=== PATIENT | female | born 1955 | race Caucasian/White ===

== ENCOUNTER 2019-01-05 04:07 | Emergency (ER) | payer MEDICARE ==
[~2019-01-05] VITALS: Ht 157.5 cm; Wt 148.3 kg
[2019-01-05] MEDS ORDERED: ZANAFLEX2 M1 PO (04:18)
[2019-01-05] MEDS ORDERED: SYNTHROID100 MC1 PO (04:18)
[2019-01-05] MEDS ORDERED: MICARDIS 80 MG80 MG PO (04:19)
[2019-01-05] MEDS ORDERED: BENADRYL25 MG PO (04:20)
[2019-01-05] MEDS ORDERED: COLACE100 MG PO (04:20)
[2019-01-05] MEDS ORDERED: LOVASTATIN 20 M20 MG PO (04:20)
[2019-01-05] MEDS ORDERED: VITAMIN D1000 UNI1 PO (04:22)
[2019-01-05] MEDS ORDERED: NORVASC10 MG PO (04:24)
[2019-01-05] MEDS ORDERED: PERCOCET 5-3251 EACH PO (04:29)
[2019-01-05 04:37] VITALS: BP 150/42
== END 2019-01-05 04:38 | disposition home or self-care (01) ==
LOC: M.ERS 04:07
DX: R51 Headache (principal); G89.29 Other chronic pain; M54.9 Dorsalgia, unspecified; I10 Essential (primary) hypertension; E05.90 Thyrotoxicosis, unspecified without thyrotoxic crisis or storm; E78.5 Hyperlipidemia, unspecified; J45.909 Unspecified asthma, uncomplicated; F17.200 Nicotine dependence, unspecified, uncomplicated; Z88.2 Allergy status to sulfonamides; Z98.890 Other specified postprocedural states

== ENCOUNTER 2019-02-23 05:45 | Emergency (ER) | payer MEDICARE, MEDICAID ==
[~2019-02-23] VITALS: Ht 157.5 cm; Wt 139.8 kg
[~2019-02-23 05:45] MED LIST: BENADRYL25 MG PO; COLACE100 MG PO; LOVASTATIN 20 M20 MG PO; MICARDIS 80 MG80 MG PO; NORVASC10 MG PO; PERCOCET 5-3251 EACH PO; SYNTHROID100 MC1 PO; VITAMIN D1000 UNI1 PO; ZANAFLEX2 M1 PO
[2019-02-23] MEDS ORDERED: MAPAP500 M1 PO (05:59)
[2019-02-23] MEDS ORDERED: IBU800 MG PO (05:59)
[2019-02-23] MEDS ORDERED: TORADOL 10 MG T10 MG PO (08:17)
[2019-02-23] MEDS ORDERED: CYCLOBENZAPRINE5 MG PO (08:17)
[2019-02-23 08:21] LABS: URINE BILIRUBIN NEGATIVE (Negative); URINE BLOOD NEGATIVE (Negative); URINE CLARITY CLEAR; URINE COLOR YELLOW; URINE GLUCOSE-RANDOM NEGATIVE (Negative); URINE KETONES NEGATIVE (Negative); URINE LEUKOCYTES-REFLEX NEGATIVE (Negative); URINE NITRITE-REFLEX NEGATIVE (Negative); URINE PROTEIN NEGATIVE (Negative); URINE SPECIFIC GRAVITY 1.015 (1.005-1.030); URINE UROBILINOGEN 0.2 E.U./dl (0.2-1.0)
[2019-02-23 08:27] LABS: AMP/METHAMP Negative (Negative); BARBITURATES Negative (Negative); BENZODIAZEPINES Negative (Negative); COCAINE Negative (Negative); METHADONE Negative (Negative); OPIATES Negative (Negative); PCP Negative (Negative); THC Negative (Negative)
[2019-02-23 08:50] VITALS: BP 144/59
== END 2019-02-23 08:51 | disposition home or self-care (01) ==
LOC: M.ERS 05:45
PROVIDERS: Personal Emergency Response Attendant
DX: S60.052A Contusion of left little finger without damage to nail, initial encounter (principal); S60.042A Contusion of left ring finger without damage to nail, initial encounter; M25.571 Pain in right ankle and joints of right foot; M25.572 Pain in left ankle and joints of left foot; M25.552 Pain in left hip; M79.674 Pain in right toe(s); M25.511 Pain in right shoulder; M25.512 Pain in left shoulder; M25.561 Pain in right knee; M25.562 Pain in left knee; M25.532 Pain in left wrist; M79.632 Pain in left forearm; J45.909 Unspecified asthma, uncomplicated; I10 Essential (primary) hypertension; E78.5 Hyperlipidemia, unspecified; E03.9 Hypothyroidism, unspecified; F17.210 Nicotine dependence, cigarettes, uncomplicated; Z88.2 Allergy status to sulfonamides; Z88.8 Allergy status to other drugs, medicaments and biological substances; Z79.899 Other long term (current) drug therapy; W18.39XA Other fall on same level, initial encounter; Y93.89 Activity, other specified; Y92.89 Other specified places as the place of occurrence of the external cause; Y99.8 Other external cause status

== ENCOUNTER 2019-03-04 10:23 | Emergency (ER) | payer MEDICARE ==
[~2019-03-04] VITALS: Ht 157.5 cm; Wt 141.9 kg
[~2019-03-04 10:23] MED LIST changes: +CYCLOBENZAPRINE5 MG PO; +IBU800 MG PO; +MAPAP500 M1 PO; +TORADOL 10 MG T10 MG PO
[2019-03-04] MEDS ORDERED: LAMICTAL 25 MG25 MG PO (10:39)
[2019-03-04 10:58] LABS: ABSOLUTE BASOPHILS 0.1 thou/uL (0.0-0.2); ABSOLUTE EOSINOPHILS 0.2 thou/uL (0.0-0.7); ABSOLUTE LYMPHOCYTES 1.9 thou/uL (0.8-5.3); ABSOLUTE MONOCYTES 0.9 thou/uL (0.0-1.2); ABSOLUTE NEUTROPHILS 4.7 thou/uL (1.6-8.1); BASOPHILS 0.7 %; EOSINOPHILS 2.8 %; HEMOGLOBIN 14.6 gm/dL (12.0-15.0); LYMPHOCYTES 24.5 %; MCH 29.9 pg (26.0-34.0); MCHC 33.1 g/dL (28.0-37.0); MCV 90.3 fL (80.0-100.0); MONOCYTES 11.3 %; MPV 9.2 fl. (7.2-11.1); NUCLEATED RBCS 0 /100WBC; PLATELET COUNT* 217 thou/uL (150-400); POLYS 60.7 %; RBC 4.88 mil/uL (4.20-5.00); RDW-CV 14.3 % (10.5-14.5); WBC 7.8 thou/uL (4.0-11.0)
[2019-03-04 11:04] LABS: CALCIUM 10.1 mg/dL (8.5-10.1); CREATININE 0.9 mg/dL (0.6-1.3); POTASSIUM 4.1 mmol/L (3.5-5.1)
[2019-03-04 11:09] LABS: ALBUMIN 3.7 g/dL (3.4-5.0); TOTAL BILIRUBIN 0.2 mg/dL (<0.1-1.0); TOTAL PROTEIN 7.6 g/dL (6.4-8.2)
[2019-03-04 11:55] LABS: URINE BILIRUBIN NEGATIVE (Negative); URINE BLOOD NEGATIVE (Negative); URINE CLARITY CLEAR; URINE COLOR YELLOW; URINE GLUCOSE-RANDOM NEGATIVE (Negative); URINE KETONES NEGATIVE (Negative); URINE LEUKOCYTES-REFLEX NEGATIVE (Negative); URINE NITRITE-REFLEX NEGATIVE (Negative); URINE PROTEIN TRACE (Negative); URINE UROBILINOGEN 0.2 E.U./dl (0.2-1.0)
[2019-03-04] MEDS ORDERED: HYDROXYZINE HCL25 M2 PO (12:07)
[2019-03-04 12:39] VITALS: BP 145/85
--- NOTE | 2019-03-06 16:21 | EKG ---
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
== END 2019-03-04 12:39 | disposition home or self-care (01) ==
LOC: M.ERS 10:23
PROVIDERS: Emergency Medicine Emergency Medical Services
DX: R25.1 Tremor, unspecified (principal); J45.909 Unspecified asthma, uncomplicated; I10 Essential (primary) hypertension; E78.5 Hyperlipidemia, unspecified; E03.9 Hypothyroidism, unspecified; Z88.2 Allergy status to sulfonamides; Z88.8 Allergy status to other drugs, medicaments and biological substances

== ENCOUNTER 2019-03-07 15:08 | Emergency (ER) | payer MEDICARE ==
[~2019-03-07] VITALS: Ht 162.6 cm; Wt 145.2 kg
[~2019-03-07 15:08] MED LIST changes: +HYDROXYZINE HCL25 M2 PO; +LAMICTAL 25 MG25 MG PO
[2019-03-07 15:55] LABS: ABSOLUTE BASOPHILS 0.1 thou/uL (0.0-0.2); ABSOLUTE EOSINOPHILS 0.2 thou/uL (0.0-0.7); ABSOLUTE LYMPHOCYTES 2.1 thou/uL (0.8-5.3); ABSOLUTE MONOCYTES 0.9 thou/uL (0.0-1.2); ABSOLUTE NEUTROPHILS 4.5 thou/uL (1.6-8.1); BASOPHILS 0.7 %; EOSINOPHILS 2.6 %; HEMATOCRIT 40.1 % (37.0-47.0); HEMOGLOBIN 13.4 gm/dL (12.0-15.0); LYMPHOCYTES 26.8 %; MCH 30.1 pg (26.0-34.0); MCHC 33.5 g/dL (28.0-37.0); MONOCYTES 11.8 %; NUCLEATED RBCS 0 /100WBC; PLATELET COUNT* 210 thou/uL (150-400); POLYS 58.1 %; RBC 4.46 mil/uL (4.20-5.00); RDW-CV 13.7 % (10.5-14.5); WBC 7.8 thou/uL (4.0-11.0)
[2019-03-07 16:06] LABS: CALCIUM 9.4 mg/dL (8.5-10.1); CREATININE 0.9 mg/dL (0.6-1.3); POTASSIUM 3.8 mmol/L (3.5-5.1)
[2019-03-07 16:11] LABS: ALBUMIN 3.4 g/dL (3.4-5.0); TOTAL BILIRUBIN 0.3 mg/dL (<0.1-1.0); TOTAL PROTEIN 7.1 g/dL (6.4-8.2)
[2019-03-07 16:25] LABS: URINE BILIRUBIN NEGATIVE (Negative); URINE BLOOD NEGATIVE (Negative); URINE CLARITY CLEAR; URINE COLOR YELLOW; URINE GLUCOSE-RANDOM NEGATIVE (Negative); URINE KETONES NEGATIVE (Negative); URINE LEUKOCYTES-REFLEX NEGATIVE (Negative); URINE NITRITE-REFLEX NEGATIVE (Negative); URINE PROTEIN NEGATIVE (Negative); URINE UROBILINOGEN 0.2 E.U./dl (0.2-1.0)
[2019-03-07 16:38] LABS: AMP/METHAMP Negative (Negative); BARBITURATES Negative (Negative); BENZODIAZEPINES Negative (Negative); COCAINE Negative (Negative); METHADONE Negative (Negative); OPIATES Negative (Negative); PCP Negative (Negative); THC Negative (Negative)
[2019-03-07] MEDS ORDERED: LORAZEPAM 0.50.5 MG PO (17:21)
[2019-03-07 17:45] VITALS: BP 168/78
--- NOTE | 2019-03-08 14:24 | EKG ---
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1955 Requested By: Grant Menchaca Order Number: [id number] MD: Km Nichols Measurements Intervals [place] Rate: 71 P: 63 [place]: 184 QRS: 71 QRSD: 98 T: 58 QT: 422 QTc: 459 Interpretive Statements Sinus rhythm Probable left atrial enlargement Borderline low voltage, extremity leads Compared to ECG 03/04/2019 11:01:09 No significant changes Electronically Signed On 03-08-2019 14:24:31 CDT by Km Nichols [email or web address] <ELECTRONICALLY SIGNED> By: Km Nichols MD, [facility] 03/08/19 1424 1554 1554 Km Nichols MD, FACC /EPI
== END 2019-03-07 17:45 | disposition home or self-care (01) ==
LOC: M.ERS 15:08
PROVIDERS: Emergency Medicine
DX: F41.9 Anxiety disorder, unspecified (principal); I10 Essential (primary) hypertension; E78.5 Hyperlipidemia, unspecified; J45.909 Unspecified asthma, uncomplicated; Z88.2 Allergy status to sulfonamides; Z88.8 Allergy status to other drugs, medicaments and biological substances

== ENCOUNTER 2019-09-15 19:10 | Emergency (ER) | payer MEDICARE ==
[~2019-09-15] VITALS: Ht 162.6 cm; Wt 130.2 kg
[~2019-09-15 19:10] MED LIST changes: +LORAZEPAM 0.50.5 MG PO; +POTASSIUM20 PO
[2019-09-15] MEDS ORDERED: NORVASC10 MG PO (19:30)
[2019-09-15 19:48] LABS: URINE BILIRUBIN NEGATIVE (Negative); URINE BLOOD NEGATIVE (Negative); URINE CLARITY CLEAR; URINE COLOR YELLOW; URINE GLUCOSE-RANDOM NEGATIVE (Negative); URINE KETONES NEGATIVE (Negative); URINE LEUKOCYTES-REFLEX NEGATIVE (Negative); URINE NITRITE-REFLEX NEGATIVE (Negative); URINE PROTEIN NEGATIVE (Negative); URINE SPECIFIC GRAVITY 1.015 (1.005-1.030); URINE UROBILINOGEN 0.2 E.U./dl (0.2-1.0)
[2019-09-15 19:57] LABS: AMP/METHAMP Negative (Negative); BARBITURATES Negative (Negative); BENZODIAZEPINES Negative (Negative); COCAINE Negative (Negative); METHADONE Negative (Negative); OPIATES Negative (Negative); PCP Negative (Negative); THC Negative (Negative)
[2019-09-15 20:05] LABS: ABSOLUTE BASOPHILS 0.1 thou/uL (0.0-0.2); ABSOLUTE EOSINOPHILS 0.2 thou/uL (0.0-0.7); ABSOLUTE LYMPHOCYTES 2.1 thou/uL (0.8-5.3); ABSOLUTE MONOCYTES 0.8 thou/uL (0.0-1.2); EOSINOPHILS 3.3 %; HEMOGLOBIN 12.8 gm/dL (12.0-15.0); LYMPHOCYTES 29.5 %; MCH 29.2 pg (26.0-34.0); MCHC 33.5 g/dL (28.0-37.0); MCV 86.9 fL (80.0-100.0); MONOCYTES 10.9 %; MPV 9.4 fl. (7.2-11.1); NUCLEATED RBCS 0 /100WBC; PLATELET COUNT* 197 thou/uL (150-400); POLYS 55.3 %; RBC 4.38 mil/uL (4.20-5.00); RDW-CV 14.1 % (10.5-14.5); WBC 7.3 thou/uL (4.0-11.0)
[2019-09-15 20:14] LABS: CALCIUM 9.1 mg/dL (8.5-10.1); CREATININE 0.8 mg/dL (0.6-1.3)
[2019-09-15 20:18] LABS: ALBUMIN 3.3 g/dL (3.4-5.0); MAGNESIUM 1.6 mg/dL (1.8-2.4); TOTAL BILIRUBIN 0.2 mg/dL (<0.1-1.0); TOTAL PROTEIN 6.6 g/dL (6.4-8.2)
[2019-09-15] MEDS ORDERED: MICARDIS 80 MG80 MG PO (21:07)
[2019-09-15] MEDS ORDERED: TRAMADOL 50 MG50 MG PO (21:07)
[2019-09-15 21:36] VITALS: BP 146/60
--- NOTE | 2019-09-17 11:50 | EKG ---
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 : 1955 Requested By: Anna Hilliard Order Number: [id number] MD: Km Nichols Measurements Intervals [place] Rate: 61 P: 45 [place]: 195 QRS: 26 QRSD: 103 T: 54 QT: 429 QTc: 432 Interpretive Statements Sinus rhythm Left atrial enlargement Compared to ECG 03/07/2019 15:54:52 No significant changes Electronically Signed On 09-17-2019 11:48:29 CDT by Km Nichols [email or web address] <ELECTRONICALLY SIGNED> By: Km Nichols MD, [facility] 09/17/19 1148 1933 193 Km Nichols MD, [facility] /EPI
== END 2019-09-15 21:38 | disposition home or self-care (01) ==
LOC: M.ERS 19:10
PROVIDERS: Emergency Medicine
DX: G89.29 Other chronic pain (principal); R60.0 Localized edema; J45.909 Unspecified asthma, uncomplicated; I10 Essential (primary) hypertension; E78.5 Hyperlipidemia, unspecified; E03.9 Hypothyroidism, unspecified; F17.210 Nicotine dependence, cigarettes, uncomplicated; Z88.2 Allergy status to sulfonamides; Z88.8 Allergy status to other drugs, medicaments and biological substances; Z79.899 Other long term (current) drug therapy

== ENCOUNTER 2019-09-21 11:28 | Emergency (ER) | payer MEDICARE ==
[~2019-09-21] VITALS: Ht 162.6 cm; Wt 127.1 kg
[~2019-09-21 11:28] MED LIST changes: +TRAMADOL 50 MG50 MG PO
[2019-09-21 12:03] LABS: ABSOLUTE BASOPHILS 0.1 thou/uL (0.0-0.2); ABSOLUTE EOSINOPHILS 0.2 thou/uL (0.0-0.7); ABSOLUTE LYMPHOCYTES 1.8 thou/uL (0.8-5.3); ABSOLUTE MONOCYTES 0.6 thou/uL (0.0-1.2); ABSOLUTE NEUTROPHILS 3.9 thou/uL (1.6-8.1); BASOPHILS 0.8 %; EOSINOPHILS 2.3 %; HEMATOCRIT 42.2 % (37.0-47.0); HEMOGLOBIN 14.2 gm/dL (12.0-15.0); LYMPHOCYTES 27.8 %; MCH 29.3 pg (26.0-34.0); MCHC 33.6 g/dL (28.0-37.0); MCV 87.3 fL (80.0-100.0); MONOCYTES 8.8 %; MPV 9.4 fl. (7.2-11.1); NUCLEATED RBCS 0 /100WBC; PLATELET COUNT* 179 thou/uL (150-400); POLYS 60.3 %; RBC 4.83 mil/uL (4.20-5.00); RDW-CV 13.9 % (10.5-14.5); WBC 6.5 thou/uL (4.0-11.0)
[2019-09-21 12:12] LABS: CALCIUM 9.1 mg/dL (8.5-10.1); CREATININE 0.6 mg/dL (0.6-1.3)
[2019-09-21 12:16] LABS: APTT 25.7 Seconds (25.0-31.3); PROTIME 10.6 Seconds (9.20-11.50)
[2019-09-21 12:22] LABS: ALBUMIN 3.7 g/dL (3.4-5.0); TOTAL BILIRUBIN 0.4 mg/dL (<0.1-1.0); TOTAL PROTEIN 7.3 g/dL (6.4-8.2)
[2019-09-21 13:25] VITALS: BP 166/74
--- NOTE | 2019-09-21 14:33 | EKG ---
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[place] : 1955 Requested By: Jose Maria Arndt Order Number: [id number] MD: Richi Granados Measurements Intervals [place] Rate: 50 P: 48 [place]: 184 QRS: 2 QRSD: 105 T: 52 QT: 468 QTc: 427 Interpretive Statements Sinus rhythm Compared to ECG 09/15/2019 19:33:10 Atrial abnormality no longer present Electronically Signed On 09-21-2019 14:31:37 CDT by Richi Granados [email or web address] <ELECTRONICALLY SIGNED> By: Richi Granados MD, [facility] 09/21/19 1431 1219 1219 Richi Granados MD, [facility] /EPI
== END 2019-09-21 13:25 | disposition home or self-care (01) ==
LOC: M.ERS 11:28
PROVIDERS: Family Medicine
DX: R11.2 Nausea with vomiting, unspecified (principal); R51 Headache; I10 Essential (primary) hypertension; E78.5 Hyperlipidemia, unspecified; E03.9 Hypothyroidism, unspecified; J45.909 Unspecified asthma, uncomplicated; F17.210 Nicotine dependence, cigarettes, uncomplicated; Z88.2 Allergy status to sulfonamides; Z88.8 Allergy status to other drugs, medicaments and biological substances